=== PATIENT | female | born 2000 | race African-American/Black ===

== ENCOUNTER 2024-08-18 00:14 | Emergency (ER) | payer BC, MEDICAID ==
[~2024-08-18] VITALS: Ht 162.6 cm; Wt 82.0 kg
[2024-08-18 00:38] VITALS: BP 140/82; PULSE 76; RESP 20; TEMP 98; O2SAT 100; O2SAT 98
== END 2024-08-18 02:56 | disposition left against medical advice (07) ==
LOC: ER 00:14
DX: J32.9 Chronic sinusitis, unspecified (principal)
CPT/HCPCS: 99281